=== PATIENT | male | born 1980 | race Caucasian/White ===

== ENCOUNTER 2018-01-02 12:05 | Emergency (ER) | payer OTHER ==
[~2018-01-02] VITALS: Ht 180.3 cm; Wt 72.7 kg
[~2018-01-02 12:05] MED LIST: ALBU8I INH; AUGM875T PO; CETI10 PO; MEDR4PAK3 PO
--- NOTE | 2018-01-02 12:29 | PD ---
HPI Chief Complaint: PSYCH Time Seen by Provider: 12:13 Travel History International Travel<30 days: No Contact w/Intl Traveler<30days: No History of Present Illness HPI 37-year-old male with PMH of PTSD, bipolar presents to the ED under Serrano act for psychiatric evaluation. The patient is followed by the [place], saw a counselor this morning and she placed him under Serrano Act. According to the Serrano Act paperwork the patient is delusional, states that he is being followed. On presentation he denies suicidal or homicidal ideation. He denies visual or auditory hallucinations. He endorses compliance with his daily Paxil. He denies previous psychiatric hospitalization or suicide attempt. He states that he thinks he is being surveilled by former coworkers. He states that "I saw a lot in the ." He states "I know the people I used to work with and they were definitely watching me during [employer]." He denies somatic complaints. He endorses occasionally smoking marijuana. He denies other illicit drug use. Denies alcohol use. [facility] Social History Alcohol Use: No Tobacco Use: No Substance Use: No Allergies-Medications (Allergen,Severity, Reaction): Coded Allergies: No Known Allergies (Unverified , 03/14/15) Reported Meds & Prescriptions Reported Meds & Active Scripts Active Augmentin 875 mg Tab (Amoxicillin & Pot Clavulanate 875 mg Tab) 875 Mg Tab 875 Mg PO BID 10 Days Medrol Dosepak (Methylprednisolone) 4 Mg Brandon 4 Mg PO DIRECTED TAKE DIRECTED Ventolin Hfa (Albuterol Sulfate) 8 Gm Aero 1 Puff INH Q4H PRN * SHAKE WELL BEFORE USE * Reported Zyrtec 10 Mg Tab (Cetirizine HCl) 10 Mg Tab 10 Mg PO DAILY Review of Systems Except as stated in HPI: all other systems reviewed are Neg Physical Exam Narrative GENERAL: Well-nourished, well-developed white male in no acute distress. PSYCH: Patient is calm, cooperative. Does not seem to be responding to internal stimuli. SKIN: Focused skin assessment warm/dry. HEAD: Normocephalic. EYES: No scleral icterus. No injection or drainage. NECK: Supple, trachea midline. No JVD or lymphadenopathy. CARDIOVASCULAR: Regular rate and rhythm without murmurs, gallops, or rubs. RESPIRATORY: Breath sounds clear and equal bilaterally. No accessory muscle use. GASTROINTESTINAL: Abdomen soft, non-tender, nondistended. Active bowel sounds. MUSCULOSKELETAL: No cyanosis, or edema. Equal strength in the bilateral upper and lower extremities. BACK: Nontender without obvious deformity. No CVA tenderness. Data Data Last Documented VS Vital Signs Date Time Temp Pulse Resp B/P (MAP) Pulse Ox O2 Delivery O2 Flow Rate FiO2 01/02/18 12:34 98.2 75 16 150/98 (115) 100 Orders Orders Complete Blood Count With Diff (01/02/18 12:22) Comprehensive Metabolic Panel (01/02/18 12:22) Thyroid Stimulating Hormone (01/02/18 12:22) Psych Screen (01/02/18 12:) Drug Screen, Random Urine (01/02/18 12:) Potassium Chloride (Kcl) (01/02/18 14:30) Diet Regular Basic (01/02/18 Dinner) Labs Laboratory Tests Test 01/02/18 12:10 White Blood Count 11.4 TH/MM3 Red Blood Count 4.87 MIL/MM3 Hemoglobin 14.6 GM/DL Hematocrit 43.2 % Mean Corpuscular Volume 88.7 FL Mean Corpuscular Hemoglobin 30.0 PG Mean Corpuscular Hemoglobin Concent 33.8 % Red Cell Distribution Width 13.3 % Platelet Count 289 TH/MM3 Mean Platelet Volume 9.3 FL Neutrophils (%) (Auto) 65.2 % Lymphocytes (%) (Auto) 25.7 % Monocytes (%) (Auto) 7.1 % Eosinophils (%) (Auto) 1.6 % Basophils (%) (Auto) 0.4 % Neutrophils # (Auto) 7.4 TH/MM3 Lymphocytes # (Auto) 2.9 TH/MM3 Monocytes # (Auto) 0.8 TH/MM3 Eosinophils # (Auto) 0.2 TH/MM3 Basophils # (Auto) 0.0 TH/MM3 CBC Comment DIFF FINAL Differential Comment Blood Urea Nitrogen 10 MG/DL Creatinine 0.89 MG/DL Random Glucose 108 MG/DL Total Protein 8.4 GM/DL Albumin 4.6 GM/DL Calcium Level 9.2 MG/DL Alkaline Phosphatase 64 U/L Aspartate Amino Transf (AST/SGOT) 20 U/L Alanine Aminotransferase (ALT/SGPT) 29 U/L Total Bilirubin 0.6 MG/DL Sodium Level 140 MEQ/L Potassium Level 3.2 MEQ/L Chloride Level 106 MEQ/L Carbon Dioxide Level 25.9 MEQ/L Anion Gap 8 MEQ/L Estimat Glomerular Filtration Rate 96 ML/MIN Thyroid Stimulating Hormone 3rd Gen 1.730 uIU/ML MDM Medical Decision Making Medical Screen Exam Complete: Yes Emergency Medical Condition: Yes Differential Diagnosis Adjustment disorder versus anxiety versus bipolar versus depression versus dementia versus electrolyte disorder versus malingering versus mood disorder versus ODD versus psychosis versus PTSD versus schizophrenia versus schizoaffective disorder versus substance-induced mood disorder versus other Narrative Course 37-year-old male with PMH of PTSD, bipolar presents to the ED under Serrano act for psychiatric evaluation. The patient is followed by the [place], saw a counselor this morning and she placed him under S[place] Act. According to the Serrano Act paperwork the patient is delusional, states that he is being followed. On presentation he denies suicidal or homicidal ideation. He denies visual or auditory hallucinations. He states that he thinks he is being surveilled by former coworkers. He states that "I saw a lot in the ." He states "I know the people I used to work with and they were definitely watching me during [employer]." He denies somatic complaints. Vitals reviewed, patient's hypertensive on presentation. Exam is reassuring. CBC unremarkable. Mild hypokalemia, replaced orally. TSH normal. Tox screen pending. Patient is medically clear for psychiatric evaluation. Diagnosis Primary Impression: Hypokalemia Jaci Cervantes Jan 02, 2018 12:29
[2018-01-02 12:34] VITALS: BP 150/98; PULSE 75; RESP 16; TEMP 98.2; O2SAT 100
[2018-01-02 13:14] LABS: AUTOMATED NEUTROPHIL # 7.4 TH/MM3 (1.8-7.7); BASOPHIL % 0.4 % (0.0-2.0); EOSINOPHIL # 0.2 TH/MM3 (0-0.4); EOSINOPHIL % 1.6 % (0.0-4.0); HEMATOCRIT 43.2 % (39.0-51.0); HEMOGLOBIN 14.6 GM/DL (13.0-17.0); LYMPH % 25.7 % (9.0-44.0); LYMPHOCYTE # 2.9 TH/MM3 (1.0-4.8); MEAN CELL VOLUME 88.7 FL (80.0-100.0); MEAN CORPUSCULAR HGB CONC 33.8 % (32.0-36.0); MEAN PLATELET VOLUME 9.3 FL (7.0-11.0); MONO % 7.1 % (0.0-8.0); MONOCYTE # 0.8 TH/MM3 (0-0.9); NEUT % 65.2 % (16.0-70.0); PLATELET COUNT 289 TH/MM3 (150-450); RED BLOOD COUNT 4.87 MIL/MM3 (4.50-5.90); RED CELL DISTRIBUTION WIDTH 13.3 % (11.6-17.2); WHITE BLOOD COUNT 11.4 TH/MM3 (4.0-11.0)
[2018-01-02 13:28] LABS: ALBUMIN 4.6 GM/DL (3.4-5.0); AST (GOT) 20 U/L (15-37); BICARBONATE 25.9 MEQ/L (21.0-32.0); BLOOD UREA NITROGEN 10 MG/DL (7-18); CALCIUM 9.2 MG/DL (8.5-10.1); CHLORIDE 106 MEQ/L (98-107); CREATININE 0.89 MG/DL (0.60-1.30); GLOMERULAR FILTRATION RATE 96 ML/MIN (>89); GLUCOSE,RANDOM 108 MG/DL (74-106); SODIUM (NA) 140 MEQ/L (136-145)
[2018-01-02 13:38] LABS: ALKALINE PHOSPHATASE 64 U/L (45-117); ALT (GPT) 29 U/L (12-78); TOTAL BILIRUBIN ADULT 0.6 MG/DL (0.2-1.0); TOTAL PROTEIN 8.4 GM/DL (6.4-8.2)
[2018-01-02] MEDS ORDERED: POTASSIUM CHLORIDE 20 MEQ CONTROLLED RELEASE TAB PO ONE (14:30)
[2018-01-02] MEDS ORDERED: PAXI30TA7 PO (17:00)
[2018-01-02 18:27] VITALS: BP 151/91; PULSE 80; RESP 18; O2SAT 100
[2018-01-02 22:23] VITALS: BP 130/69; PULSE 79; RESP 17; TEMP 97.6; O2SAT 99
[2018-01-03 05:12] VITALS: BP 130/79; PULSE 88; RESP 18; TEMP 97.9; O2SAT 98
--- NOTE | 2018-01-03 09:31 | PD ---
History of Present Illness Chief Complaint: Psychiatric Symptoms Time Seen by Provider: 09:15 Travel History International Travel<30 Days: No Contact w/Intl Traveler<30days: No Known affected area: No Legal Status Legal Status: Involuntary Serrano Act Comment: S[place] Act initiated by Sebastian Lua LCSW at [facility] History of Present Illness: History of Present Illness HPI 37-year-old male, with PMH of PTSD, bipolar disorder presents to the ED under an involuntary status for psychiatric evaluation. The patient is followed by the [place], he was at an appointment with a social work job titles this morning and according to her documentation the patient reported to her that" he believed people are following him, he knows too much, no one is a smart as him, people do not understand what is happening and what he saw in the . He worked for a very important job and he may be killed for information he has." The patient did not make any allegations that he was intending to harm himself. Furthermore he states that he was there to get medication and that he did say he would not go to mental health because he was there 2 days ago and allegedly waited for 8 hours and was not seen. Electronic medical record is reviewed. No previous contact with [facility] psychiatry. No toxicology report is available for review at this time. The patient was monitor and secure environment over extended period of time. No behavioral concerns, no episodes of aggressive or restless behavior. Patient slept very well. Patient is seen this morning. He is alert, oriented, dressed in hospital pajamas and maintaining basic hygiene. Affect is congruent to mood. Mood is somewhat anxious. His speech is clear, logical, coherent and of normal rate and tone. There is no indication that he is experiencing any psychosis, there is no hallucinations, no delusions and no paranoia. The patient does state that in November 21 he did have" a breakdown" and he reports what appears to be a psychotic episode. At that time he did feel like he was being followed. Nevertheless he has not had any other episodes such as that one. That prompted him to seek care at the [place]. The patient does report previous episodes of having racing thoughts but not at this time. The patient denies any suicidal, homicidal ideation, intent or plan PFSH Past Medical History Bipolar Disorder: Yes Depression: Yes Diminished Hearing: No Gastrointestinal Disorders: Yes (IBS) Psychiatric: Yes (PTSD) Immunizations Current: Yes Psychiatric History Psychiatric History Hx Psychiatric Treatment: Patient denies having previous hospitalizations for psychiatry. Began psychiatric treatment November 21 after an alleged psychotic episode. No previous history of suicide attempt. No self-injurious behavior. History of Inpatient Treatment: No Guns or firearms in home: No Social History Divorce male. Lives with his mom. He has in 8-year-old son which she has been visiting privileges every other week. He is currently attending school full- time to complete a bachelor's degree in computers. 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 Hx of Substance Use Treatment: No Family Psychiatric History Brother with bipolar disorder. 2 uncles also diagnosed with bipolar disorder Allergies-Medications (Allergen,Severity, Reaction): Coded Allergies: No Known Allergies (Verified Adverse Reaction, Unknown, 01/02/18) Reported Meds & Prescriptions Reported Meds & Active Scripts Active Ventolin Hfa (Albuterol Sulfate) 8 Gm Aero 1 Puff INH Q4H PRN * SHAKE WELL BEFORE USE * Reported Paxil (Paroxetine HCl) 30 Mg Tab 20 Mg PO DAILY Review of Systems Musculoskeletal: COMPLAINS OF: Joint pain Psychiatric: COMPLAINS OF: Anxiety Except as stated in HPI: all other systems reviewed are Neg Mental Status Examination Appearance: Appropriate Consciousness: Alert Orientation: x4 Motor Activity: Normal gait Speech: Unremarkable Language: Adequate Fund of Knowledge: Adequate Attention and Concentration: Adequate Memory: Unremarkable Mood: Anxious Affect: Appropriate Thought Process & Associations: Intact, Logical, Goal directed Thought Content: Appropriate Hallucination Type: None Delusion Type: None Suicidal Ideation: No Suicidal Plan: No Suicidal Intention: No Homicidal Ideation: No Homicidal Plan: No Homicidal Intention: No Insight: Fair Judgment: Adequate [facility] Medical Decision Making Medical Record Reviewed: Yes Assessment/Plan 37 year-old with history of bipolar disorder, PTSD who while in context of a appointment with a [place] reported that he had experience psychotic symptoms back in November 21. He was at the clinic wanting to get an appointment for a medication change. As per the patient he was informed that they could not see him at the [place] and therefore he is being referred to the hospital for medication adjustment. The patient may have in fact been experiencing hypomanic symptoms at the time of the evaluation but has demonstrated absolutely no clinical evidence of any geoffrey or hypomania during the period that he was monitored. No psychosis, no suicidal or homicidal ideation. The patient at this time does not meet criteria to remain at the Serrano act and he is requesting to be discharged. I find no grounds to keep him against his will here. He is strongly encouraged to follow up with the [place] for continued medication management and counseling. The patient does verbalize his interest in continuing his counseling services at the [place]. The Serrano act as lifted psychiatric clear for discharge from the ED . Orders Orders Complete Blood Count With Diff (01/02/18 12:22) Comprehensive Metabolic Panel (01/02/18 12:22) Thyroid Stimulating Hormone (01/02/18 12:22) Psych Screen (01/02/18 12:22) Drug Screen, Random Urine (01/02/18 12:22) Potassium Chloride (Kcl) (01/02/18 14:30) Diet Regular Basic (01/02/18 Dinner) Diet Regular Basic (01/03/18 Breakfast) Diet Regular Basic (01/03/18 Lunch) Results Vital Signs Date Time Temp Pulse Resp B/P (MAP) Pulse Ox O2 Delivery O2 Flow Rate FiO2 01/03/18 05:12 97.9 88 18 130/79 (96) 98 Room Air 01/02/18 22:23 97.6 79 17 130/69 (89) 99 Room Air 01/02/18 18:27 80 18 151/91 (111) 100 Room Air 01/02/18 12:34 98.2 75 16 150/98 (115) 100 Laboratory Tests Test 01/02/18 12:10 White Blood Count 11.4 Red Blood Count 4.87 Hemoglobin 14.6 Hematocrit 43.2 Mean Corpuscular Volume 88.7 Mean Corpuscular Hemoglobin 30.0 Mean Corpuscular Hemoglobin Concent 33.8 Red Cell Distribution Width 13.3 Platelet Count 289 Mean Platelet Volume 9.3 Neutrophils (%) (Auto) 65.2 Lymphocytes (%) (Auto) 25.7 Monocytes (%) (Auto) 7.1 Eosinophils (%) (Auto) 1.6 Basophils (%) (Auto) 0.4 Neutrophils # (Auto) 7.4 Lymphocytes # (Auto) 2.9 Monocytes # (Auto) 0.8 Eosinophils # (Auto) 0.2 Basophils # (Auto) 0.0 CBC Comment DIFF FINAL Differential Comment Blood Urea Nitrogen 10 Creatinine 0.89 Random Glucose 108 Total Protein 8.4 Albumin 4.6 Calcium Level 9.2 Alkaline Phosphatase 64 Aspartate Amino Transf (AST/SGOT) 20 Alanine Aminotransferase (ALT/SGPT) 29 Total Bilirubin 0.6 Sodium Level 140 Potassium Level 3.2 Chloride Level 106 Carbon Dioxide Level 25.9 Anion Gap 8 Estimat Glomerular Filtration Rate 96 Thyroid Stimulating Hormone 3rd Gen 1.730 Diagnosis Primary Impression: Hypokalemia Additional Impressions: PTSD (post-traumatic stress disorder) Bipolar disorder Psychiatrically Cleared: Yes Med/ Other Pt Specific Info: No Change to Meds Disposition: 01 DISCHARGE HOME Condition: Stable Problem Qualifiers Additional Impressions: Bipolar disorder Qualified Codes: F31.61 - Bipolar disorder, current episode mixed, mild Sarah Beth Acharya [facility] Jan 03, 2018 09:30
--- NOTE | 2018-01-03 09:45 | PD ---
Physical Exam Date Seen by Provider: Jan 03, 2018 Time Seen by Provider: 09:43 Narrative 37-year-old male [facility], with suicidal ideations, was medically cleared for psychiatric evaluation. Patient has been seen by psychiatric staff this morning and deemed psychiatrically stable for discharge at this time. Follow-up will be based on the psychiatric note. Patient to return to the [place]. Data Data Last Documented VS Vital Signs Date Time Temp Pulse Resp B/P (MAP) Pulse Ox O2 Delivery O2 Flow Rate FiO2 01/03/18 05:12 97.9 88 18 130/79 (96) 98 Room Air Orders Orders Complete Blood Count With Diff (01/02/18 12:22) Comprehensive Metabolic Panel (01/02/18 12:22) Thyroid Stimulating Hormone (01/02/18 12:22) Psych Screen (01/02/18 12:22) Drug Screen, Random Urine (01/02/18 12:22) Potassium Chloride (Kcl) (01/02/18 14:30) Diet Regular Basic (01/02/18 Dinner) Diet Regular Basic (01/03/18 Breakfast) Diet Regular Basic (01/03/18 Lunch) Labs Laboratory Tests Test 01/02/18 12:10 White Blood Count 11.4 TH/MM3 Red Blood Count 4.87 MIL/MM3 Hemoglobin 14.6 GM/DL Hematocrit 43.2 % Mean Corpuscular Volume 88.7 FL Mean Corpuscular Hemoglobin 30.0 PG Mean Corpuscular Hemoglobin Concent 33.8 % Red Cell Distribution Width 13.3 % Platelet Count 289 TH/MM3 Mean Platelet Volume 9.3 FL Neutrophils (%) (Auto) 65.2 % Lymphocytes (%) (Auto) 25.7 % Monocytes (%) (Auto) 7.1 % Eosinophils (%) (Auto) 1.6 % Basophils (%) (Auto) 0.4 % Neutrophils # (Auto) 7.4 TH/MM3 Lymphocytes # (Auto) 2.9 TH/MM3 Monocytes # (Auto) 0.8 TH/MM3 Eosinophils # (Auto) 0.2 TH/MM3 Basophils # (Auto) 0.0 TH/MM3 CBC Comment DIFF FINAL Differential Comment Blood Urea Nitrogen 10 MG/DL Creatinine 0.89 MG/DL Random Glucose 108 MG/DL Total Protein 8.4 GM/DL Albumin 4.6 GM/DL Calcium Level 9.2 MG/DL Alkaline Phosphatase 64 U/L Aspartate Amino Transf (AST/SGOT) 20 U/L Alanine Aminotransferase (ALT/SGPT) 29 U/L Total Bilirubin 0.6 MG/DL Sodium Level 140 MEQ/L Potassium Level 3.2 MEQ/L Chloride Level 106 MEQ/L Carbon Dioxide Level 25.9 MEQ/L Anion Gap 8 MEQ/L Estimat Glomerular Filtration Rate 96 ML/MIN Thyroid Stimulating Hormone 3rd Gen 1.730 uIU/ML MDM Medical Record Reviewed: Yes Supervised Visit with FRANKLIN: Yes Narrative Course 37-year-old male [facility] [facility], with suicidal ideations, was medically cleared for psychiatric evaluation. Patient has been seen by psychiatric staff this morning and deemed psychiatrically stable for discharge at this time. Follow-up will be based on the psychiatric note. Patient to return to the [place]. Diagnosis Primary Impression: Hypokalemia Patient Instructions: General Instructions, Hypokalemia (ED) Disposition: 01 DISCHARGE HOME Condition: Stable Yg Zavala Jan 03, 2018 09:45
== END 2018-01-03 10:04 | disposition home or self-care (01) ==
LOC: NEDAMB 12:05 → NEPJ 01-03 10:04
DX: E87.6 Hypokalemia (principal); F31.61 Bipolar disorder, current episode mixed, mild; F43.10 Post-traumatic stress disorder, unspecified; Z79.899 Other long term (current) drug therapy
CPT/HCPCS: 80053; 80307; 84443; 85025; 99283